=== PATIENT | female | born 2000 | race Hispanic/Latino ===

== ENCOUNTER 2023-09-21 00:42 | Emergency (ER) | payer OTHER ==
[2023-09-21] MEDS ORDERED: diphenhydrAMINE 25 MG CAP ONE (01:12)
[2023-09-21] MEDS ORDERED: methylPREDNISolone Sod Succ/PF 125 MG/2 ML VIAL ONE (01:13)
[2023-09-21] MEDS ORDERED: Famotidine 20 MG TAB ONE (01:14)
== END 2023-09-21 01:50 | disposition home or self-care (01) ==
LOC: CSHERS 00:42
DX: O99.712 Diseases of the skin and subcutaneous tissue complicating pregnancy, second trimester (principal); L50.0 Allergic urticaria; Z3A.24 24 weeks gestation of pregnancy
CPT/HCPCS: J2930

== ENCOUNTER 2023-09-21 20:16 | Emergency (ER) | payer OTHER ==
[2023-09-21] MEDS ORDERED: predniSONE 20 MG TAB ONE (21:08)
== END 2023-09-21 21:10 | disposition home or self-care (01) ==
LOC: CSHERS 20:16
DX: L50.9 Urticaria, unspecified (principal)
CPT/HCPCS: 99283; J2930; J7512

== ENCOUNTER 2023-11-17 20:17 | Day surgery (SDC) | payer OTHER ==
[2023-11-17] MEDS ORDERED: hydrALAZINE 20 MG/ML VIAL SLOW IVP PRN (20:53)
[2023-11-17 21:01] VITALS: BMI 22.2
[2023-11-17 21:18] LABS: Bilirubin Neg (Negative); Blood, Urine Negative (Negative); Clarity Clear (Clear); Glucose, Urine (Dipstick) 100 mg/dL (Negative); Ketone, Urine Negative (Negative); Leukocyte 100 (Negative); Nitrite Negative (Negative); Protein, Urine (Dipstick) Negative (Neg-Trace); Urobilinogen Normal mg/dL (Less than 2)
[2023-11-17 21:25] LABS: Bacteria/HPF 4+ HPF (None Seen); CAUTI Indications for Culture Pregnancy; RBC/HPF 0-3 HPF (0-3)
[2023-11-17 21:26] LABS: Urine Culture Reflex Yes Yes
== END 2023-11-17 22:00 | disposition home or self-care (01) ==
LOC: CSHLD/OP 20:17
PROVIDERS: ATTEND Family Medicine
DX: O47.03 False labor before 37 completed weeks of gestation, third trimester (principal); O99.013 Anemia complicating pregnancy, third trimester
CPT/HCPCS: 81001; 87086